=== PATIENT | female | born 1990 | race Caucasian/White ===

== ENCOUNTER 2018-07-06 16:15 | Day surgery (SDC) | payer OTHER ==
[~2018-07-06] VITALS: Ht 172.7 cm; Wt 76.9 kg
[2018-07-06] MEDS ORDERED: MIRENA52 MG IY (16:32)
[2018-07-06 16:36] VITALS: BP 126/75; PULSE 85; TEMP 98.2
[2018-07-06 18:30] VITALS: BP 138/61; PULSE 56; TEMP 98
[2018-07-06 18:45] VITALS: BP 138/77; PULSE 56; TEMP 98
== END 2018-07-06 20:00 | disposition home or self-care (01) ==
LOC: SURG 16:15 → SDCO 16:15 → SURG 17:00 → EDSTATUS 17:00 → EDBD 17:00 → SURG 20:00 → SDCO 20:00
DX: N20.2 Calculus of kidney with calculus of ureter (principal)
CPT/HCPCS: C1769; C2617; J0690; J1100; J2405; J2704; J3010; J7030; Q9967

== ENCOUNTER → 2020-09-28 | Outpatient (REF) ==
[~2020-09-28] MED LIST: MIRENA52 MG IY
== END ==
LOC: WSOH 14:24
DX: Z02.89 Encounter for other administrative examinations (principal)